=== PATIENT | female | born 2000 | race Caucasian/White ===

== ENCOUNTER 2023-04-16 08:44 | Emergency (ER) | payer SELFPAY ==
[2023-04-16 08:45] VITALS: BP 151/5; PULSE 102; RESP 16; TEMP 36.7; O2SAT 100; BMI 31.9
--- NOTE | 2023-04-16 08:56 | VDLE_ITS ---
Version 2 Reason For Study: Right calf pain RIGHT LEFT GSV is normal. CFV is compressible, spontaneous, phasic, CFV is compressible, spontaneous, phasic, competent, and demonstrates normal competent and demonstrates normal augmentation. augmentation. FV is compressible, spontaneous, phasic, competent and demonstrates normal augmentation. POP V is compressible, spontaneous, phasic, competent and demonstrates normal augmentation. T/P Trunk is compressible. RT PerV is compressible. Acute deep vein thrombosis is noted in the PTV ad SoleusV. It is dilated and NONCOMPRESSIBLE. Begins in SoleusV extends to PTV mid and is 2.2 cm from the T/P Trunk. Procedure This is a venous duplex using B-mode, color flow and spectral Doppler. Exam performed in department. A preliminary report was called and/or faxed to Dr. Armando. VL/Venous Duplex US, Unilateral Interpretation Summary Acute deep vein thrombosis is noted in the right posterior tibial vein, soleus vein Ordering Physician: Bry Armando Performed By: Romina Toussaint RVT
--- NOTE | 2023-04-16 08:57 | ED.VIS.LOWEX ---
HPI History of Present Illness Chief Complaint: Lower Extremity Injury Informant: patient and parent Narrative Narrative: Healthy 23-year-old female presents with nontraumatic pain in her right calf for the last 3 days and states she was to be evaluated to make sure it is not a blood clot. She has never had one before. Father has a history of factor V Leiden. She states this morning she noticed some mild mid chest discomfort when she exhaled. No dyspnea, palpitations, syncope or near syncope. No swelling in the leg. PFSH PFSH Medical History no medical history no medical history Home Medications apixaban 5 mg (74 tabs) tablets in a dose pack (EliquTopDeejays DVT-PE Treat 30D Start) 5 mg PO BID #74 tabs 04/16/23 [Rx Last Taken Unknown] Allergy/AdvReac Type Severity Reaction Status Date / Time No Known Allergies Allergy Verified 04/16/23 08:46 Family History no significant family his Surgical History no surgical history Social History Smoking Status: Never smoker ROS ROS ED Constitutional Constitutional ED: Denies chills or fever(s) Musculoskeletal Musculoskeletal: Reports extremity pain; Denies neck pain Integumentary Denies Abrasions, rash or wounds Neurologic Neurologic: Denies paresthesias or weakness EXAM Physical Exam Const Vital Signs: 04/16/23 08:45 Temperature 98.1 F Temperature Source Temporal Pulse Rate 102 H Respiratory Rate 16 Blood Pressure 151/5 H Blood Pressure Mean 53 Pulse Ox 100 Oxygen Delivery Method Room Air Positive well nourished and well developed General Appearance ED: well developed and NAD Neck full ROM and supple Back/Spine normal ROM and normal to inspection Extremity normal to inspection and full ROM Extremity Narrative: Mild tenderness throughout the right calf, it is diffuse. There are no palpable cords. No erythema or signs of any skin wounds/lesions. No edema. The contralateral leg looks symmetric. Neuro oriented x3, no focal motor deficits and no sensory deficits noted Sensorium / Orientation: alert Psych mental status grossly normal and thought process normal Skin no wounds Rashes: no rashes MDM MDM MDM Narrative Medical decision making narrative: Venous duplex ultrasound of the right lower extremity was obtained and does confirm acute DVT in the posterior tibial vein and the soleus vein. She is otherwise open. Even though these are below the trifurcation, this is nonprovoked and she has a history of factor V in the family. She will need further workup for this but for now I will anticoagulate her, she does not have a PCP. She states her father does and she will try to follow-up with them. In case she is not able to follow-up during the first month of Eliquis, I will also give her the information for vascular. Discussed with her and family they are comfortable with that plan. Discharge Plan Triage Chief Complaint: Lower Extremity Injury ED Provider: Bry Armando Dx/Rx/DC Orders Clinical Impression: Acute deep vein thrombosis (DVT) of right lower extremity Instructions: Understanding Deep Vein Thrombosis Prescriptions: New Eliquis DVT-PE Treat 30D Start 5 mg (74 tabs) tablets,dose pack 5 mg PO BID Qty: 74 0RF Rx Instructions: use as directed Primary Care Provider: Care Physician,No Primary Referrals: Sanya Stovall MD [Med Staff - Active Staff] - (if you are not able to get into Primary care within next 30 days) Doctor,Your [Non-Staff] - As soon as possible Activity Restrictions/Additional Instructions: To get the prescription filled, start it tomorrow morning, 04/17. Disposition Disposition: Home, Self Care
[2023-04-16] MEDS: Enoxaparin 150 MG/ML Syringe 140 MG SC (10:17)
== END 2023-04-16 10:24 | disposition home or self-care (01) ==
PROVIDERS: Emergency Provider Emergency Medicine; Visit Provider Emergency Medicine
DX: I82.442 Acute embolism and thrombosis of left tibial vein (principal); I82.462 Acute embolism and thrombosis of left calf muscular vein
CPT/HCPCS: 93971; 96372; 99282

== ENCOUNTER → 2023-05-13 | Outpatient (CLI) | payer SELFPAY ==
--- NOTE | 2023-05-13 07:54 | VDLE_ITS ---
Reason For Study: Right leg pain RIGHT LEFT GSV is normal. CFV is compressible, spontaneous, phasic, CFV is compressible, spontaneous, phasic, competent, and demonstrates normal competent and demonstrates normal augmentation. augmentation. FV is compressible, spontaneous, phasic, competent and demonstrates normal augmentation. POP V is compressible, spontaneous, phasic, competent and demonstrates normal augmentation. T/P Trunk is compressible. PTV is compressible. RT PerV is compressible. Soleus vein is compressible. Procedure This is a venous duplex using B-mode, color flow and spectral Doppler. Exam performed in department. Compared to 04/16/2023. VL/Venous Duplex US, Unilateral Interpretation Summary Deep veins of the right lower extremity are patent and compressible segmentally . There is no evidence of right lower extremity deep vein thrombosis. The right great sapheno us vein appears patent and compressible segmentally. Resolution of prior thrombus. Ordering Physician: Sanya Stovall Performed By: Margaux Harris RDCS, RVT
--- OUTSIDE RECORDS SUMMARY | 2023-05-13 08:08 | XMS RPT_ITS | CCD ---
Author Name Unknown Address [address] [place] [address] Organization [facility] Care Team Providers Care Quality Checker Name Role Phone MONTY TREVIÑO MD Admitting Unavailable MONTY TREVIÑO MD Attending Unavailable NO, DOCTOR ON Referring Unavailable MONTY TREVIÑO MD Primary Care Unavailable NO, DOCTOR ON Consulting Unavailable Results Test Name Value Interpretation Reference Range Facil ity Encounters Encounter Date Encounter Type Care Provider Facility Start: 04-21-2019 End: 04-21-2019 Emergency department patient visit MONTY TREVIÑO [facility] Procedures Date Procedure Procedure Detail Performing Clinician Start: 04-21-2019 Urinalysis MONTY WILLS Summary Purpose Family History No Family History Records Found Advance Directives No Advanced Directives Records Found Additional Source Comments INFORMATION SOURCE (unrecogn ized section and content) FOR RECORDS PERTAINING TO PATIENTS WHO ARE OR HAVE BEEN ENROLLED IN A CHEMICAL DEPENDENCY/SUBSTANCEABUSE PROGRAM, SOME INFORMATION MAY BE OMITTED. This clinical summary was aggregated from multiple sources. Caution should be exercised in using it in the provision of clinical care. This summary normalizes information from multiple sources, and as a consequence, information in this document may materially change the coding, format and clinical context of patient data. In addition, data may be omitted in some cases. CLINICAL DECISIONS SHOULD BE BASED ON THE PRIMARY CLINICAL RECORDS. [employer] provides no warranty or guarantee of the accuracy or completeness of information in this document.
== END | disposition home or self-care (01) ==
PROVIDERS: Referring Provider Surgery Trauma Surgery; Visit Provider Surgery Trauma Surgery
DX: I82.409 Acute embolism and thrombosis of unspecified deep veins of unspecified lower extremity (principal)
CPT/HCPCS: 93971